=== PATIENT | male | born 1990 | race Caucasian/White ===

== ENCOUNTER 2016-08-10 21:38 | Emergency (ER) | payer OTHER ==
[~2016-08-10 21:38] MED LIST: IBUPOTC PO; PERCOCET PO; TYLE325T5 PO
[2016-08-10] MEDS ORDERED: IBUPROFEN 800 MG TAB As Ordered ONE (22:53)
--- NOTE | 2016-08-10 22:59 | EDDOCDS ---
Physician Documentation [facility], [place] Name: Iraj Collier Age: 26 yrs Sex: Male : 1990 Arrival Date: 08/10/2016 Time: 21:38 Bed TR7 Private MD: Other - Complete Info On Cds Disposition: 08/10/16 22:51 Discharged to Home/Self Care. Impression: Contusion of left wrist, Contusion of left hand. - Condition is Stable. - Discharge Instructions: Hand Contusion, Wrist Pain. - Prescriptions for Ibuprofen 600 mg Oral Tablet - take 1 tablet by ORAL route every 6 hours As needed take with food; 30 tablet. - Medication Reconciliation, Local Pharmacy Hours form. - Follow up: Private Physician; When: Call to arrange an appointment; Reason: Recheck today's complaints, Continuance of care. - Problem is new. - Symptoms are unchanged. Historical: - Allergies: no known allergies; - Home Meds: 1. tizanidine 4 mg oral cap 1 cap nightly PRN 2. Voltaren 75 mg Oral TbEC 1 tab 2 times per day 3. Lidocaine 2% Sub-Q as needed - PMHx: L shoulder injury; - PSHx: Hernia repair- Left inguinal; Appendectomy; - Social history: Smoking status: Chewing Tobacco No barriers to communication noted, The patient speaks fluent Monegasque. - Family history: Not pertinent. - : The pt / caregiver states he / she is not on anticoagulants. Home medication list is obtained from the patient. - Exposure Risk Screening:: None identified. Vital Signs: 08/10 21:40 BP 129 / 69; Pulse 88; Resp 18 S; Temp 96.9(O); Pulse Ox 97% on R/A; Weight 83.91 kg / gr2 184.99 lbs (R); Height 5 ft. 10 in. (177.80 cm) (R); Pain 5/10; 21:40 Body Mass Index 26.54 (83.91 kg, 177.80 cm) gr2 MDM: 21:52 Hand, Complete Ordered. EDMS 21:52 Wrist, Complete Ordered. EDMS 22:50 Garry Wrap ordered. mo1 22:50 Ibuprofen 800 mg PO once ordered. mo1 22:57 [facility] Payment Agreement was scanned into [employer] and attached to record. gjdejan 22:57 Financial registration complete. gjb Administered Medications: :57 Drug: Ibuprofen 800 mg [ibuprofen 800 mg tablet (1 tabs)] Route: PO; cz Signatures: Dispatcher [employer] EDJorge Franklin RN RN cz O'Hagan, Michael, PA PA mo1 Rosalina Graves RN RN ms18 Floridalma Barba The chart was reviewed and I authenticate all verbal orders and agree with the evaluation and treatment provided.Corrections: (The following items were deleted from the chart) 21:50 Wrist, complete+XR ordered. EDMS EDMS 21:51 Hand, complete+XR ordered. EDMS EDMS Attachments: :57 [facility] [place] Agreement guerda MTDD
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
--- NOTE | 2016-08-10 23:04 | REP ---
Clinical: Trauma. Technique: AP, lateral, oblique views. Findings: The carpal bones, surrounding osseous structures, soft tissues, and joint spaces are normal. There is no evidence for acute fracture or dislocation. No subcutaneous emphysema or radiodense foreign body. Impression: No acute fracture or dislocation Signed by Gus Mcintyre MD 08/10/2016 10:55 P
--- NOTE | 2016-08-10 23:07 | REP ---
Clinical: Trauma. Technique: AP, lateral, bilateral oblique views left hand. Findings: The osseous structures and joint spaces are intact and normal. There is no evidence for acute fracture or dislocation. Surrounding soft tissues are unremarkable. No subcutaneous emphysema or radiodense foreign body. Impression: No acute fracture or dislocation. Signed by Gus Mcintyre MD 08/10/2016 10:57 P
--- NOTE | 2016-08-13 | EDDOCDS ---
Physician Documentation [facility] Name: Iraj Collier Age: 26 yrs Sex: Male : 1990 Arrival Date: 08/10/2016 Time: 21:38 Bed TR7 Private MD: Other - Complete Info On Cds Disposition: 08/10/16 22:51 Discharged to Home/Self Care. Impression: Contusion of left wrist, Contusion of left hand. - Condition is Stable. - Discharge Instructions: Hand Contusion, Wrist Pain. - Prescriptions for Ibuprofen 600 mg Oral Tablet - take 1 tablet by ORAL route every 6 hours As needed take with food; 30 tablet. - Medication Reconciliation, Local Pharmacy Hours form. - Follow up: Private Physician; When: Call to arrange an appointment; Reason: Recheck today's complaints, Continuance of care. - Problem is new. - Symptoms are unchanged. Historical: - Allergies: no known allergies; - Home Meds: 1. tizanidine 4 mg oral cap 1 cap nightly PRN 2. Voltaren 75 mg Oral TbEC 1 tab 2 times per day 3. Lidocaine 2% Sub-Q as needed - PMHx: L shoulder injury; - PSHx: Hernia repair- Left inguinal; Appendectomy; - Social history: Smoking status: Chewing Tobacco No barriers to communication noted, The patient speaks fluent Burkinan. - Family history: Not pertinent. - : The pt / caregiver states he / she is not on anticoagulants. Home medication list is obtained from the patient. - Exposure Risk Screening:: None identified. Vital Signs: 08/10 21:40 BP 129 / 69; Pulse 88; Resp 18 S; Temp 96.9(O); Pulse Ox 97% on R/A; Weight 83.91 kg / gr2 184.99 lbs (R); Height 5 ft. 10 in. (177.80 cm) (R); Pain 5/10; 21:40 Body Mass Index 26.54 (83.91 kg, 177.80 cm) gr2 MDM: 21:52 Hand, Complete Ordered. EDMS 21:52 Wrist, Complete Ordered. EDMS 22:50 Garry Wrap ordered. mo1 22:50 Ibuprofen 800 mg PO once ordered. mo1 22:57 [facility] Payment Agreement was scanned into [employer] and attached to record. gjb 22:57 Financial registration complete. gjb 08/11 05:20 T-Sheet-- Draft Copy was scanned into [employer] and attached to record. [facility] 09:17 PCR was scanned into [employer] and attached to record. gb Administered Medications: 08/10 22:57 Drug: Ibuprofen 800 mg [ibuprofen 800 mg tablet (1 tabs)] Route: PO; cz Signatures: Dispatcher [employer] EDMS Jorge Frazier RN RN cz Elizabeth Short, Reg Reg gb Iraj Bangura PA PA mo1 Rosalina Graves RN RN ms18 Arel, Floridalma Pena The chart was reviewed and I authenticate all verbal orders and agree with the evaluation and treatment provided.Corrections: (The following items were deleted from the chart) 21:54 21:50 Wrist, complete+XR ordered. EDMS EDMS 21:54 21:51 Hand, complete+XR ordered. EDMS EDMS Attachments: 22:57 [facility] [place] Agreement banner 08/11 05:20 T-Sheet-- Draft Copy lj Chart Complete MTDD
--- NOTE | 2016-08-13 | EDDOCDS ---
Physician Documentation [facility] Name: Iraj Collier Age: 26 yrs Sex: Male : 1990 Arrival Date: 08/10/2016 Time: 21:38 Bed TR7 Private MD: Other - Complete Info On Cds Disposition: 08/10/16 22:51 Discharged to Home/Self Care. Impression: Contusion of left wrist, Contusion of left hand. - Condition is Stable. - Discharge Instructions: Hand Contusion, Wrist Pain. - Prescriptions for Ibuprofen 600 mg Oral Tablet - take 1 tablet by ORAL route every 6 hours As needed take with food; 30 tablet. - Medication Reconciliation, Local Pharmacy Hours form. - Follow up: Private Physician; When: Call to arrange an appointment; Reason: Recheck today's complaints, Continuance of care. - Problem is new. - Symptoms are unchanged. Historical: - Allergies: no known allergies; - Home Meds: 1. tizanidine 4 mg oral cap 1 cap nightly PRN 2. Voltaren 75 mg Oral TbEC 1 tab 2 times per day 3. Lidocaine 2% Sub-Q as needed - PMHx: L shoulder injury; - PSHx: Hernia repair- Left inguinal; Appendectomy; - Social history: Smoking status: Chewing Tobacco No barriers to communication noted, The patient speaks fluent Costa Rican. - Family history: Not pertinent. - : The pt / caregiver states he / she is not on anticoagulants. Home medication list is obtained from the patient. - Exposure Risk Screening:: None identified. Vital Signs: 08/10 21:40 BP 129 / 69; Pulse 88; Resp 18 S; Temp 96.9(O); Pulse Ox 97% on R/A; Weight 83.91 kg / gr2 184.99 lbs (R); Height 5 ft. 10 in. (177.80 cm) (R); Pain 5/10; 21:40 Body Mass Index 26.54 (83.91 kg, 177.80 cm) gr2 MDM: 21:52 Hand, Complete Ordered. EDMS 21:52 Wrist, Complete Ordered. EDMS 22:50 Garry Wrap ordered. mo1 22:50 Ibuprofen 800 mg PO once ordered. mo1 22:57 [facility] Payment Agreement was scanned into [email or web address] and attached to record. gjb 22:57 Financial registration complete. gjb 08/11 05:20 T-Sheet-- Draft Copy was scanned into [email or web address] and attached to record. [facility] 09:17 PCR was scanned into [email or web address] and attached to record. gb Administered Medications: 08/10 22:57 Drug: Ibuprofen 800 mg [ibuprofen 800 mg tablet (1 tabs)] Route: PO; cz Signatures: Dispatcher [employer] EDMS Jorge Frazier RN RN cz Elizabeth Short, Reg Reg gb Iraj Bangura PA PA mo1 Rosalina Graves RN RN ms18 Arel, Floridalma Pena The chart was reviewed and I authenticate all verbal orders and agree with the evaluation and treatment provided.Corrections: (The following items were deleted from the chart) 21:54 21:50 Wrist, complete+XR ordered. EDMS EDMS 21:54 21:51 Hand, complete+XR ordered. EDMS EDMS Attachments: 22:57 [place] [facility] 08/11 05:20 T-Sheet-- Draft Copy lj Chart Complete MTDD
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
== END 2016-08-10 22:59 | disposition home or self-care (01) ==
LOC: M ED 21:38
DX: S60.212A Contusion of left wrist, initial encounter (principal); S60.222A Contusion of left hand, initial encounter; W18.09XA Striking against other object with subsequent fall, initial encounter; Y92.410 Unspecified street and highway as the place of occurrence of the external cause; Y93.89 Activity, other specified; Y99.8 Other external cause status; Z90.89 Acquired absence of other organs; F17.228 Nicotine dependence, chewing tobacco, with other nicotine-induced disorders; Z79.899 Other long term (current) drug therapy

== ENCOUNTER → 2016-08-19 | Outpatient (CLI) | payer OTHER ==
[~2016-08-19] MED LIST changes: +CONRAY-43 43% 50ML VIAL (Q9960) As Ordered ONE
--- NOTE | 2016-08-19 08:56 | REP ---
MR arthrography left shoulder: with pre- and post intra-articular gadolinium enhanced saline injected imaging: History: Left shoulder pain. No comparison radiographs. Technique: The injection procedure is performed and dictated separately. Pre- and post intra-articular gadolinium enhanced saline injected imaging is acquired. Imaging planes include axial, oblique coronal, oblique sagittal and ABER projection images. T1 and T2-weighted scans are included with and without fat saturation. MRI findings: Preinjection MR imaging demonstrates a subacromial subdeltoid bursal effusion. Glenohumeral and acromioclavicular joints are normally aligned. Cortical and medullary bone signal intensity are normal. There is increased signal intensity in the distal supraspinatus tendon on oblique coronal T1-weighted preinjection images consistent with tendinosis change. There is no evidence of focal rotator cuff tear on preinjection images. Post injection images show good filling and enhancement of the glenohumeral articulation. No loose body is seen. There is no visible rotator cuff tear on post injection T1-weighted fat sat coronal images. The biceps, infraspinatus, subscapularis and supraspinatus tendons appear intact. Skeletal muscle signal intensity is unremarkable. No labral tear is seen. Impression: Mild tendinosis change in the distal supraspinatus tendon. Subacromial subdeltoid bursal effusion seen on preinjection imaging. Otherwise unremarkable MR arthrography left shoulder. Signed by Dion Fournier MD 08/19/2016 10:40 A
--- NOTE | 2016-08-19 15:04 | REP ---
Procedure: Left shoulder arthrogram The procedure was performed under the direct supervision of Dr. Fournier. History: Left shoulder pain The benefits and risks including but not limited to pain, infection, bleeding and anaphylaxis were explained to the patient and informed consent was obtained. Technique: The left glenohumeral joint space was localized using fluoroscopic guidance. The skin was prepped and draped in a sterile fashion. 1% lidocaine was used as a local anesthetic. Using fluoroscopic guidance a 22 gauge spinal needle was inserted and advanced into the joint. 0.5 ml of Conray 43 was injected to verify placement. 11 ml of a solution containing 20 ml of sterile saline and 0.15 ml of ProHance was injected into the joint. The needle was removed and the patient was taken to MRI for postprocedural imaging. The the patient tolerated the procedure well and there were no immediate complications. 1 second of fluoro time was utilized for this procedure. Reviewed by RIP Joseph 08/19/2016 08:26 ASigned by Dion Fournier MD 08/19/2016 02:56 P
== END ==
LOC: M RADPRO 06:43
PROVIDERS: ATTEND Family Medicine
DX: M75.80 Other shoulder lesions, unspecified shoulder (principal)
CPT/HCPCS: 23350; 73223; 77002; A9576; Q9960